=== PATIENT | female | born 1965 | race Caucasian/White ===

== ENCOUNTER 2017-08-31 09:49 | Observation (INO) | payer OTHER ==
[2017-08-31] VITALS (12 sets, daily range): BP systolic 98–114; BP diastolic 53–62
[~2017-08-31] VITALS: Ht 157.5 cm; Wt 81.6 kg
--- NOTE | ~2017-08-31 | H ---
[address] [address] HISTORY AND PHYSICAL Name: ABELARDO DAMICO Room: [address] Sasha Abreu#: [id number] Admission: 08/31/17 Attend Phys: Felix Ayala MD, Discharge: 09/01/17 Date of : 65 Report #: [id number] THIS REPORT FOR: //name// Please refer to the History and Physical performed in the physician's office. By: 1317Medical Records Staff GISEL /SHANNAN
[2017-08-31 10:33] LABS: HEMATOCRIT 34.4 % (37.0-47.0); HEMOGLOBIN 11.3 gm/dL (12.0-15.0); MCH 28.8 pg (26.0-34.0); MCHC 32.7 g/dL (28.0-37.0); MCV 87.9 fL (80.0-100.0); MPV 6.6 fl. (7.2-11.1); RBC 3.91 mil/uL (4.20-5.00); RDW-CV 13.4 % (10.5-14.5); WBC 6.8 thou/uL (4.0-11.0)
[2017-08-31] MEDS ORDERED: ARMOUR THYROID60 M1 PO (10:33)
[2017-08-31] MEDS ORDERED: SAVELLA100 MG PO (10:34)
[2017-08-31] MEDS ORDERED: PRAVACHOL40 M1 PO (10:35)
[2017-08-31] MEDS ORDERED: LOSARTAN POTASS25 MG PO (10:35)
[2017-08-31] MEDS ORDERED: CARVEDILOL6.25 MG PO (10:36)
[2017-08-31] MEDS ORDERED: TROKENDI XR200 MG PO (10:37)
[2017-08-31] MEDS ORDERED: AMITIZA8 MCG (10:38)
[2017-08-31] MEDS ORDERED: SINGULAIR 10 MG10 M1 PO (10:38)
[2017-08-31] MEDS ORDERED: EVEKEO (10:40)
[2017-08-31] MEDS ORDERED: BRINTELLIX10 MG PO (10:41)
[2017-08-31] MEDS ORDERED: ZOLPIDEM TARTRA10 MG PO (10:43)
[2017-08-31 10:44] LABS: APTT 25.7 Seconds (25.0-31.3); INR 1.1; PROTIME 10.6 Seconds (9.20-11.50)
[2017-08-31 10:46] LABS: ANION GAP 10 mmol/L (7-16); BUN 18 mg/dL (7-18); CHLORIDE 111 mmol/L (98-107); CO2 22 mmol/L (21-32); GLUCOSE 130 mg/dL (70-99); POTASSIUM 3.8 mmol/L (3.5-5.1); SODIUM 143 mmol/L (136-145)
[2017-08-31] MEDS ORDERED: TRAZODONE HCL100 MG PO (10:46)
[2017-08-31 10:47] LABS: ALBUMIN 3.6 g/dL (3.4-5.0); ALKALINE PHOSPHATASE 105 U/L (46-116); CHOLESTEROL 237 mg/dL (<200); HDL CHOLESTEROL 90 mg/dL (>40); LDL CHOLESTEROL 142 mg/dL (<100); SGOT 17 U/L (15-37); SGPT 20 U/L (30-65); TC:HDL 2.6 Ratio (Not establshd); TOTAL BILIRUBIN 0.2 mg/dL (<0.1-1.0); TRIGLYCERIDE 27 mg/dL (<150); VLDL 5 mg/dL (<40)
[2017-08-31] MEDS ORDERED: PIROXICAM20 MG PO (10:47)
[2017-08-31 10:48] LABS: SERUM ASSESSMENT Clear
[2017-08-31] MEDS ORDERED: ALL DAY ALLERGY10 M1 PO (10:48)
[2017-08-31] MEDS ORDERED: VITAMIN D3400 UNIT PO (10:49)
[2017-08-31] MEDS ORDERED: FLEXERIL PO (10:58)
[2017-08-31] MEDS ORDERED: PENTAZOCINE/NAL1 TA1 PO (11:01)
[2017-08-31] MEDS ORDERED: BENTYL 20 MG TA20 M1 (11:03)
[2017-08-31] MEDS ORDERED: MAXALT MLT ODT10 M1 PO (11:05)
[2017-08-31] MEDS ORDERED: ZOLMITRIPTAN5 MG PO (11:06)
[2017-08-31] MEDS ORDERED: VALIUM5 MG PO (11:07)
--- NOTE | 2017-08-31 15:51 | EKG ---
[place] [address] ELECTROCARDIOGRAM REPORT Name: CAMDEN DAMICOA Room: [address] ADM IN M.R.#: [id number] Admission: 08/31/17 Attend Phys: Felix Ayala MD, Discharge: Date of : 65 Report #: [id number] THIS REPORT FOR: //name// [facility] Test Date: 2017-08-31 Test Time: 10:31:06 Pat Name: ABELARDO DAMICO Department: Room: [facility] Gender: F Driver License Technician: YURY : 1965 Requested By: Felix Ayala Order Number: [id number] Janki MD: Felix Ayala Measurements Intervals [place] Rate: 87 P: 16 AL: 139 QRS: -11 QRSD: 87 T: 18 QT: 372 QTc: 448 Interpretive Statements Sinus rhythm Nonspecific T abnormalities, anterior leads No previous ECG available for comparison Electronically Signed On 08-31-2017 15:51:16 FIRE SUPPORT MAN by Felix Ayala [email or web address] <ELECTRONICALLY SIGNED> By: Felix Ayala MD, [facility] 08/31/17 1551 1031 1031 Felix Ayala MD, FACC /EPI
--- NOTE | 2017-08-31 15:56 | EKG ---
[place] [address] ELECTROCARDIOGRAM REPORT Name: DAMICOABELARDO Room: [address] ADM IN M.R.#: [id number] Admission: 08/31/17 Attend Phys: Felix Ayala MD, Discharge: Date of : 65 Report #: [id number] THIS REPORT FOR: //name// [facility] Test Date: 2017-08-31 Test Time: 15:24:48 Pat Name: ABELARDO DAMICO Department: Room: [facility] Gender: F Crystal Flat Grinder: CAITLIN : 1965 Requested By: Felix Ayala Order Number: [id number] Reading MD: Felix Ayala Measurements Intervals [place] Rate: 57 P: 19 ID: 127 QRS: 5 QRSD: 116 T: 59 QT: 462 QTc: 450 Interpretive Statements Sinus rhythm Nonspecific intraventricular conduction delay right precordial st-t changes Baseline wander in lead(s) V2 heart rate has decreased Electronically Signed On 08-31-2017 15:56:26 STAMP PAD MAKER by Felix Ayala [email or web address] <ELECTRONICALLY SIGNED> By: Felix Ayala MD, [facility] 08/31/17 1556 1524 1524 Felix Ayala MD, FAC /EPI
[2017-08-31] MEDS ORDERED: BENTYL 20 MG TA20 M1 PO (20:47)
[2017-08-31] MEDS ORDERED: AMITIZA8 MCG PO (20:48)
[2017-08-31] MEDS ORDERED: EVEKEO PO (20:48)
[2017-09-01 04:17] VITALS: BP 118/70
[2017-09-01 05:04] LABS: HEMOGLOBIN 9.8 gm/dL (12.0-15.0); MCH 28.8 pg (26.0-34.0); MCHC 32.6 g/dL (28.0-37.0); MCV 88.5 fL (80.0-100.0); MPV 6.9 fl. (7.2-11.1); RBC 3.39 mil/uL (4.20-5.00); RDW-CV 13.4 % (10.5-14.5); WBC 12.4 thou/uL (4.0-11.0)
[2017-09-01 05:43] LABS: ANION GAP 10 mmol/L (7-16); BUN 19 mg/dL (7-18); CALCIUM 8.5 mg/dL (8.5-10.1); CHLORIDE 114 mmol/L (98-107); CO2 21 mmol/L (21-32); CREATININE 0.9 mg/dL (0.6-1.3); GLUCOSE 100 mg/dL (70-99); POTASSIUM 4.2 mmol/L (3.5-5.1); SODIUM 145 mmol/L (136-145); TROPONIN-I LEVEL <0.06 ng/mL (<0.06)
--- NOTE | 2017-09-01 09:56 | CARD ---
[address] [address] CARDIAC CATH REPORT Name: ABELARDO DAMICO Room: [address] IN M.R.#: [id number] Admission: 08/31/17 Attend Phys: Felix Ayala MD, Discharge: Date of : 65 Report #: [id number] THIS REPORT FOR: //name// APPROVED REPORT Patient Details Patient Status: Out-Patient Room #: The patient is a 52 year-old female Event Personnel Dr. yAala Procedures Performed Left heart catheterization left ventriculography and selective coronary angiography, and percutaneous coronary intervention with deployment of drug-eluting stent at the site of 80% tubular proximal LAD stenosis Indication Positive stress test, Chest pain Risk Factors Family History, Hypercholesterolemia, Hypertension Admission/Lab Medications/Medications given during procedure Aspirin, Platelet Aff. Inhib., Angiomax bolus and infusion Procedure Narrative The patient was brought electively to the Cardiac Catheterization Laboratory and was prepped and draped in a sterile manner. The right femoral was infiltrated with 1% Lidocaine subcutaneous anesthesia. A 6 Welsh sheath was inserted into the right femoral artery. Coronary angiography was performed using coronary diagnostic catheters. The right coronary system was accessed and visualized with a Diagnostic catheter. The left coronary system was accessed and visualized with a Diagnostic catheter. The left ventricle was accessed and visualized with a Diagnostic catheter. Left ventricular/Aortic Valve gradient assessed via catheter pullback. Left ventriculogram was performed in HERNANDEZ projection. Pre-demployment femoral angiogram was performed . Closure device was deployed with a 6 Fr Angioseal. The patient tolerated the procedure well and there were no complications associated with the procedure. There was no hematoma. Diagnostic Cath Left Main 0% narrowing [facility] [address] [place] [address] CARDIAC CATH REPORT Name: ABELARDO DAMICO Room: [address] IN [facility]#: [id number] Admission: 08/31/17 Attend Phys: Felix Ayala MD, Discharge: Date of : 65 Report #: [id number] LAD 80% proximal LAD stenosis Circumflex 0% narrowing of this nondominant vessel Right Coronary Large dominant vessel with 0% narrowing Left Ventriculography Ejection Fraction was 65% based off patient's . The left ventricular ejection fraction is estimated to be 65%. There is no mitral insufficiency. Hemodynamics The aortic pressure is 110/60 mmHg with a mean of 74 mmHg. The left ventricular end diastolic pressure is 5 mmHg. There was no gradient across the aortic valve upon pullback. PCI Technique Lesion Anticoagulation was achieved with Angiomax. Percutaneous coronary intervention was performed on the proximal LAD. The lesion stenosis prior to intervention was 80% with FREDDY 3 flow. A 6 Welsh XB LAD 3.0 Guide Catheter was used to engage the ostium. A 014 [employer] Interventional Guidewire was used to cross the lesion. STENT DEPLOYMENT A drug-eluting stent 2.75 x 15 mm xience Alpine was inserted and inflated up to 14atm for 15seconds. POST STENT DEPLOYMENT BALLOON DILATION A Balloon catheter 2.75 x 12 mm NC euphora was inserted and inflated up to 18atm for 10seconds. Final angiography reveals 0 % stenosis with FREDDY 3 flow. Conclusion #1 significant single-vessel coronary artery disease characterized by the following: A 80% tubular proximal LAD stenosis #2 normal left ventricular size and systolic function, estimated ejection fraction being 65% #3 normal left-sided hemodynamics study #4 successful percutaneous coronary intervention with deployment of a drug-eluting stent at the site of 80% tubular proximal LAD stenosis with 0% residual narrowing following stent deployment and FREDDY-3 [place] [address] CARDIAC CATH REPORT Name: ABELARDO DAMICO Room: [address] IN [facility]#: [id number] Admission: 08/31/17 Attend Phys: Felix Ayala MD, Discharge: Date of : 65 Report #: [id number] to the distal vessel. Recommendations Cardiac Risk Reduction Program Aggressive Medical Therapy Medications Administered Aspirin (any) Prasugrel <ELECTRONICALLY SIGNED> By: Felix Ayala MD, [facility] 09/01/17 0956 0956 0956John Troy Ayala MD, FACC /INF
[2017-09-01 10:00] VITALS: BP 100/57
[2017-09-01] MEDS ORDERED: ASPIR 8181 MG PO (12:37)
[2017-09-01] MEDS ORDERED: ATORVASTATIN CA40 MG PO (12:38)
[2017-09-01] MEDS ORDERED: EFFIENT10 MG PO (12:39)
--- NOTE | 2017-09-01 14:45 | EKG ---
[place] [address] ELECTROCARDIOGRAM REPORT Name: DAMICOABELARDO Room: [address] M.R.#: [id number] Admission: 08/31/17 Attend Phys: Felix Ayala MD, Discharge: 09/01/17 Date of : 65 Report #: [id number] THIS REPORT FOR: //name// [facility] Test Date: 2017-09-01 Test Time: 03:20:55 Pat Name: ABELARDO DAMICO Department: Room: [facility] Gender: F Hunting Sales Associate: PITA : 1965 Requested By: Felix Ayala Order Number: [id number] Reading MD: Kel Bae Measurements Intervals [place] Rate: 85 P: 46 OK: 158 QRS: -9 QRSD: 93 T: 38 QT: 381 QTc: 453 Interpretive Statements Sinus rhythm Low voltage, precordial leads Borderline T abnormalities, anterior leads Compared to ECG 08/31/2017 15:24:48 Low QRS voltage now present T-wave abnormality now present Intraventricular conduction delay no longer present ST (T wave) deviation no longer present Electronically Signed On 09-01-2017 14:45:15 WHARF TALLY CLERK by Kel Bae [email or web address] <ELECTRONICALLY SIGNED> By: Kel Bae MD, FACC 09/01/17 1445 0320 0320 Kel Bae MD, FACC /EPI
--- NOTE | 2017-09-25 12:56 | D ---
[address] [address] DISCHARGE SUMMARY Name: ABELARDO DAMICO Room: [address] Sasha MNicanor#: [id number] Admission: 08/31/17 Attend Phys: Felix Ayala MD, Discharge: 09/01/17 Date of : 65 Report #: [id number] THIS REPORT FOR: //name// CC: AWILDA Ibarra MD [facility] DATE OF SERVICE: 09/01/2017 FINAL DISCHARGE DIAGNOSES: 1. Abnormal stress test with inducible anterolateral ischemia. 2. Coronary artery disease. 3. Status post percutaneous coronary intervention of the proximal left anterior descending. 4. Hypertension. 5. History of dilated cardiomyopathy. PROCEDURES: 08/31/2017 -- left heart catheterization, left ventriculography, selective coronary arteriography, percutaneous coronary intervention with deployment of drug-eluting stent at site of 80% tubular proximal LAD stenosis. The patient is a pleasant 52-year-old female with a history of chest pain, not always brought on by exertion. She had an abnormal stress test with inducible anterolateral ischemia. At cardiac catheterization, she was found to have a tubular 80% stenosis of proximal LAD. Despite infusion of significant amounts of intracoronary nitroglycerin, there was no change in this tubular narrowing with marked dilatation proximal and distal to the site. There were no significant stenosis of the left main, circumflex or dominant right coronary artery. Given her clinical picture, and given the abnormal stress test with significant proximal LAD narrowing, which was refractory to intracoronary nitroglycerin, deployed one drug-eluting stent in the proximal LAD, post-dilating it to 2.8-2.85 mm with 0% residual narrowing and FREDDY 3 flow of the distal vessel. The patient did well post-procedurally and there was good hemostasis at the right femoral site of catheterization. LABORATORY DATA: On 09/01/2017 revealed a hemoglobin of 9.8, white blood cell count of 12,400, platelets of 255,000. Sodium 145, potassium 4.2, BUN 19, creatinine 0.9, cholesterol 237, HDL 90, LDL 142, triglycerides 27. DISCHARGE MEDICATIONS: The patient was discharged to home on the following medications: Amphetamine 5 mg daily, aspirin 81 mg daily, atorvastatin 40 mg daily, carvedilol 6.25 mg b.i.d., cetirizine 10 mg daily, cholecalciferol 400 units daily, diazepam 5 mg b.i.d., losartan 25 mg daily, Amitiza 8 mcg b.i.d., Savella 100 mg b.i.d., Singulair 10 mg daily, piroxicam 20 mg at bedtime, [place] [address] DISCHARGE SUMMARY Name: ABELARDO DAMICO Room: [address] Sasha Abreu#: [id number] Admission: 08/31/17 Attend Phys: Felix Ayala MD, Discharge: 09/01/17 Date of : 65 Report #: [id number] prasugrel or Effient 10 mg daily with a 60 mg dose given periprocedurally, [place] Thyroid 60 mg daily, topiramate 200 mg daily, trazodone 100 mg at bedtime, Trintellix 15 mg at bedtime, zolpidem 10 mg at bedtime, cyclobenzaprine or Flexeril 10 mg as needed p.r.n., dicyclomine 20 mg p.r.n., pentazocine/naloxone 50 mg b.i.d. p.r.n., rizatriptan 10 mg t.i.d. p.r.n., zolmitriptan 5 mg b.i.d. p.r.n. DISCHARGE INSTRUCTIONS: The patient is scheduled to see our nurse practitioner, Catina Brush on 10/30/[address] Ibarra subsequently in approximately 6 weeks. The patient is discharged to home in stable condition on the aforementioned medications with followup as iterated above. <ELECTRONICALLY SIGNED> By: Felix Ayala MD, FACC 09/25/17 1256 0932 [id number] Ayala MD, FAC /nt
== END 2017-09-01 13:14 | disposition home or self-care (01) ==
LOC: M.CL 09:49 → M.TBA-CV 14:29 → M.2W 14:29
PROVIDERS: ADMIT Internal Medicine
DX: I21.09 ST elevation (STEMI) myocardial infarction involving other coronary artery of anterior wall (principal); I25.10 Atherosclerotic heart disease of native coronary artery without angina pectoris; I10 Essential (primary) hypertension; I42.0 Dilated cardiomyopathy

== ENCOUNTER 2017-09-04 17:16 | Observation (INO) | payer OTHER ==
[~2017-09-04] VITALS: Ht 157.5 cm; Wt 85.7 kg
[~2017-09-04 17:16] MED LIST: ALL DAY ALLERGY10 M1 PO; AMITIZA8 MCG; AMITIZA8 MCG PO; ARMOUR THYROID60 M1 PO; ASPIR 8181 MG PO; ATORVASTATIN CA40 MG PO; BENTYL 20 MG TA20 M1; BENTYL 20 MG TA20 M1 PO; BRINTELLIX10 MG PO; CARVEDILOL6.25 MG PO; EFFIENT10 MG PO; EVEKEO; EVEKEO PO; FLEXERIL PO; LOSARTAN POTASS25 MG PO; MAXALT MLT ODT10 M1 PO; PENTAZOCINE/NAL1 TA1 PO; PIROXICAM20 MG PO; PRAVACHOL40 M1 PO; SAVELLA100 MG PO; SINGULAIR 10 MG10 M1 PO; TRAZODONE HCL100 MG PO; TROKENDI XR200 MG PO; VALIUM5 MG PO; VITAMIN D3400 UNIT PO; ZOLMITRIPTAN5 MG PO; ZOLPIDEM TARTRA10 MG PO
[2017-09-04 17:26] VITALS: BP 113/61
[2017-09-04 17:44] LABS: ABSOLUTE BASOPHILS 0.1 thou/uL (0.0-0.2); ABSOLUTE EOSINOPHILS 0.2 thou/uL (0.0-0.7); ABSOLUTE LYMPHOCYTES 2.3 thou/uL (0.8-5.3); ABSOLUTE MONOCYTES 0.3 thou/uL (0.0-1.2); ABSOLUTE NEUTROPHILS 3.5 thou/uL (1.6-8.1); EOSINOPHILS 3.8 %; HEMATOCRIT 33.9 % (37.0-47.0); HEMOGLOBIN 10.7 gm/dL (12.0-15.0); LYMPHOCYTES 35.5 %; MCH 29.5 pg (26.0-34.0); MCHC 31.6 g/dL (28.0-37.0); MCV 93.4 fL (80.0-100.0); MONOCYTES 5.2 %; MPV 6.9 fl. (7.2-11.1); NUCLEATED RBCS 0 /100WBC; PLATELET COUNT* 259 thou/uL (150-400); POLYS 54.5 %; RBC 3.63 mil/uL (4.20-5.00); RDW-CV 14.3 % (10.5-14.5); WBC 6.4 thou/uL (4.0-11.0)
[2017-09-04 17:53] LABS: ANION GAP 9 mmol/L (7-16); BUN 22 mg/dL (7-18); CALCIUM 8.7 mg/dL (8.5-10.1); CHLORIDE 109 mmol/L (98-107); CO2 27 mmol/L (21-32); GLUCOSE 80 mg/dL (70-99); SODIUM 145 mmol/L (136-145)
[2017-09-04 17:56] LABS: INR 1.1; PROTIME 10.3 Seconds (9.20-11.50)
[2017-09-04 18:04] LABS: ALBUMIN 3.6 g/dL (3.4-5.0); ALKALINE PHOSPHATASE 118 U/L (46-116); LIPASE 160 U/L (73-393); NT-PRO BRAIN NAT PEPTIDE 34 pg/mL (<300); SGOT 16 U/L (15-37); SGPT 23 U/L (30-65); TOTAL BILIRUBIN 0.1 mg/dL (<0.1-1.0); TOTAL PROTEIN 6.8 g/dL (6.4-8.2); TROPONIN-I LEVEL <0.06 ng/mL (<0.06)
[2017-09-04 20:30] VITALS: BP 115/63
[2017-09-04 20:35] VITALS: BP 113/66
[2017-09-05 00:18] VITALS: BP 95/54
--- NOTE | 2017-09-05 02:00 | NUR ---
notified by kala ugarte that patient needs home dose of pentazosine-nalaxone. not available to administer from pharmacy. patient having pain. spoke with [facility] pharmacist. identified patient's pills over the phone. i also verified the pill with drug ID on [employer]. 1 pill administered by rn per dr. smith's order. patient's medication counted with patient and kala ugarte present (93) then 1 administered (92) in patient's pill bottle in pharmacy for pharmacy to label and identify today.
--- NOTE | 2017-09-05 03:14 | NUR ---
PT ADMIT TO ROOM 213. ALERT ORIENTED. ADMIT WITH BACK PAIN BETWEEN SHOULDERBLADES TIMES 2 DAYS. PT GIVEN HOME DOSE OF PAIN MEDICATIONS. PENTAZOCINE-NALOXONE. TELMETRY SHOWS SR. PT RESTING QUIETLY. NPO AT MN. TROPONINIS WNL. WILL CONTINUE TO MONITOR.
[2017-09-05 04:21] VITALS: BP 127/55
[2017-09-05 08:08] VITALS: BP 91/50
--- NOTE | 2017-09-05 10:16 | NUR ---
ASSUMED CARE OF PT THIS AM AROUND 0715- SOCIOLOGY RESEARCH ASSISTANT IN PLACE ORDERED, TRACING SR- UPON ASSESSMENT PT NOTED TO BE RESTING IN BED, EYES CLOSED- PT A&O X4-CONTINENT OF BOWEL AND BLADDER-SBA WITH TRANSFERS FOR SAFETY- LCTA, RESP EVEN AND UN-LABORED- VSS, O2 SAT 98% ON 2L VIA NC- ABDOMEN SOFT/ROUND/NON-TENDER, BS X 4 QUADS- LAST BM REPORTED 09/04/17- IV NOTED TO LEFT HAND INTACT, IVF INFUSING PRESCIBED- PT HUMPHREY NPO- CTA ORDERED WITH SOLU-MED X2 DOSES TO BE GIVEN PRIOR WITH BENADRYL AT TIME OF CTA R/T CONTRAST ALLERGY- 1ST DOSE GIVEN THIS AM PRESCIBED- NEW ORDERS NOTED FOR US ABD TO EVAL GB ABD BILIARY TREE- PT DENIES CHEST PAIN AT THIS TIME- CALL LIGHT AND PERSOANL BELONGINGS WITH IN REACH- HOURLY ROUNDS IN PLACE R/T SAFETY/NEEDS- ALL NEEDS MET AT THIS TIME-WCTM
--- NOTE | 2017-09-05 15:39 | NUR ---
CM ASSESSMENT: Pt is A&O. Resides at home with her . Independent with ADLs, continues to cook, clean and drive. Pt has a walker and wc that she can use if necessary, Pt stated that she needed the DME in 2010 after a bout of vertigo. Pt does not currently use DME. Hx of HH. No hx of SNF. Pt does not wear home o2. Pt has a neuro appt in September d/t a small pituitary gland. Goal is to dc home once medically stable.
[2017-09-05 16:00] VITALS: BP 116/76
--- NOTE | 2017-09-05 16:38 | EKG ---
[place] [address] ELECTROCARDIOGRAM REPORT Name: ABELARDO DAMICO Room: [address] ADM IN .R.#: [id number] Admission: 09/04/17 Attend Phys: Rosalinda Gupta Discharge: Date of : 65 Report #: [id number] THIS REPORT FOR: //name// [facility] ED Test Date: 2017-09-04 Test Time: 17:22:16 Pat Name: ABELARDO DAMICO Department: Room: [facility] Gender: F Ignition Expert: PERCY : 1965 Requested By: Isamar Simmons Order Number: [id number] MD: Bentley Barrios Measurements Intervals [place] Rate: 87 P: 20 AK: 135 QRS: 9 QRSD: 93 T: 41 QT: 375 QTc: 451 Interpretive Statements Sinus rhythm nonspecific t wave changes Abnormal R-wave progression, early transition Compared to ECG 09/01/2017 03:20:55 no change Electronically Signed On 09-05-2017 16:37:53 PRINT PRODUCER by Bentley Barrios [email or web address] <ELECTRONICALLY SIGNED> By: Bentley Barrios MD, [facility] 09/05/17 1637 1722 172 Bentley Barrios MD, [facility] /EPI
--- NOTE | 2017-09-05 16:49 | EKG ---
[place] [address] ELECTROCARDIOGRAM REPORT Name: CAMDEN DAMICOA Room: [address] ADM IN M.R.#: [id number] Admission: 09/04/17 Attend Phys: Rosalinda Gupta Discharge: Date of : 65 Report #: [id number] THIS REPORT FOR: //name// [facility] Test Date: 2017-09-05 Test Time: 08:59:34 Pat Name: ABELARDO DAMICO Department: Room: [address] Gender: F Database Coordinator: : 1965 Requested By: Agustin Mendoza Order Number: [id number] Reading MD: Bentley Barrios Measurements Intervals [place] Rate: 78 P: 14 W[place]: 137 QRS: 6 QRSD: 89 T: 53 QT: 386 QTc: 440 Interpretive Statements Sinus rhythm early transition Nonspecific T abnormalities, anterior leads Electronically Signed On 09-05-2017 16:49:29 INSTRUMENTATION FITTER by Bentley Barrios [email or web address] <ELECTRONICALLY SIGNED> By: Bentley Barrios MD, [facility] 09/05/17 1649 0859 0859 Bentley Barrios MD, FACC /EPI
--- NOTE | 2017-09-05 17:26 | NUR ---
PT ERYNENCITLALLI RESTING IN BED- CONSTRUCTION EQUIPMENT OPERATOR IN PLACE ORDERED, TRACING SR- IV TO LEFT HAND CONTINUED, IVF INFUSING ORDERED- NEW 18GAUGE IV PLACED PRE CTA INDICATED THIS SHIFT- SOLU-MED ALONG WITH BENADRYL GIVEN THIS SHIFT PRESCIBED PRIOR TO CONTRAST WITH CTA R/T ALLERGY REPORTED- CTA RESULTS SHOW NO EVIDENCE OF PE, BASILAR PULMONARY ATELECTASIS NOTED- US OF ABDOMEN COMPLETED THIS SHIFT ORDERED, RESULTS COMMUNICATED TO WITH NO NEW ORDERS RECIEVED- CARDIOLOGY CONSULT INTIATED INDICATED THIS SHIFT- DIET RESTARTED WITH OKAY CONFIRMED ER THIS SHIFT- PT DENIES ANY C/O PAIN/DISCOMORT AT THIS TIME- CALL LIGHT AND PERSONAL BELONGINGS WITH IN REACH-ALL NEEDS MET AT THIS TIME-WCTM
[2017-09-05 18:42] VITALS: BP 100/58; BP 109/56; BP 117/63
[2017-09-05 20:15] VITALS: BP 133/73
[2017-09-06] VITALS (7 sets, daily range): BP systolic 94–115; BP diastolic 55–80
--- NOTE | 2017-09-06 03:23 | NUR ---
ASSUMED CARE AT 2014, ASSESSMENT CHARTED. PATIENT ALERT/ORIENTED X4, SITTING UP IN BED WITH AT BEDSIDE. PATIENT TEARY AT TIMES WHEN TALKING ABOUT POSSIBILITY OF HER HAVING ALZHEIMER'S. UP AD LINDA IN ROOM. DENIES PAIN OR NEEDS. REFUSING SCD'S. MEDS PER MAR. CALL LIGHT WITHIN REACH, ENCOURAGED TO CALL FOR NEEDS.
--- NOTE | 2017-09-06 09:23 | NUR ---
ASSUMED CARE OF PT THIS AM AROUND 07- CREAM CHEESE MAKER IN PLACE ORDERED, TRACING SR- UPON ASSESSMENT PT NOTED TO BE RESTING IN BED, EYES OPEN- PT A&O X4- CONTINENT OF BOWEL AND BLADDER- UP AD-LINDA IN ROOM IN, STEADY GAIT NOTED- LCTA, RESP EVEN AND UN-LABORED- VSS, O2 SAT 97% ON 2L VIA NC- ABDOMEN SOFT/ROUND/NON-TENDER, BS X4 QUADS- LAST BM REPORTED 09/04/17- TRACE EDEMA NOTED TO BLE- IV NOTED TO LEFT FA AND SL, 2ND IV NOED TO LEFT HAND INTACT WITH IVF INFUSING PRESCRIBED- ECHO ORDERED FOR THIS AM- D/C PENDING RESULTS- PT DENIES ANY C/O PAIN/DISCOMFORT AT THIS TIME- CALL LIGHT AND PERSONAL BELONGINGS WITH IN REACH- HOURLY ROUNDS IN PLACE R/T SAFETY/NEEDS- ALL NEEDS MET AT THIS TIME-WCTM
--- NOTE | 2017-09-06 15:35 | 2DMMODE ---
[place] [address] 2 D/M-MODE ECHOCARDIOGRAM Name: ABELARDO DAMICO Room: [address] ADM IN [facility]#: [id number] Admission: 09/04/17 Attend Phys: Sean Streeter Discharge: Date of : 65 Date of Service: 09/06/17 1534 Report #: [id number] THIS REPORT FOR: //name// APPROVED REPORT Study performed: 09/06/2017 09:46:50 EXAM: Comprehensive 2D, Doppler, and color-flow Echocardiogram Patient Location: In-Patient Room #: [facility] Status: routine BSA: 1.87 HR: 85 bpm BP: 103/62 mmHg Rhythm: NSR Other Information Study Quality: Good Indications Chest Pain 2D Dimensions LVEF(%): 70.41 (>50%) IVSd: 10.18 (7-11mm) LVOT Diam: 21.28 (18-24mm) LVDd: 45.84 mm PWd: 9.09 (7-11mm) Ascending Ao: 29.43 (22-36mm) LVDs: 27.62 (25-40mm) Aortic Root: 32.49 mm Mcclain's LVEF: 70.41 % Volumes Left Atrial Volume (Systole) LA ESV Index: 23.30 mL/m2 Aortic Valve AoV Peak Chapin.: 1.39 m/s AO Peak Gr.: 7.77 mmHg LVOT Max P.69 mmHg AO Mean Gr.: 4.38 mmHg LVOT Mean P.85 mmHg LVOT Max V: 0.96 m/s AO V2 VTI: 26.83 cm LVOT Mean V: 0.62 m/s ROBY (VTI): 2.98 cm2 LVOT V1 VTI: 22.44 cm Mitral Valve E/A Ratio: 1.06 [place] [address] 2 D/M-MODE ECHOCARDIOGRAM Name: ABELARDO DAMICO Room: [address] IN .R.#: [id number] Admission: 09/04/17 Attend Phys: Sean Streeter Discharge: Date of : 65 Date of Service: 09/06/17 1534 Report #: [id number] MV Decel. Time: 201.68 ms MV E Max Chapin.: 0.92 m/s MV PHT: 58.49 ms MVA (PHT): 3.76 cm2 TDI E/Lateral E': 6.57 E/Medial E': 7.67 Medial E' Chapin.: 0.12 m/s Lateral E' Chapin.: 0.14 m/s Pulmonary Valve PV Peak Chapin.: 0.85 m/s PV Peak Gr.: 2.89 mmHg Tricuspid Valve TR Peak Gr.: 17.27 mmHg RVSP: 22.00 mmHg Left Ventricle The left ventricle is normal size. There is normal LV segmental wall motion. There is normal left ventricular wall thickness. Left ventricular systolic function is normal. The left ventricular ejection fraction is within the normal range. LVEF is 60-65%. The left ventricular diastolic function is normal. Right Ventricle The right ventricle is normal size. The right ventricular systolic function is normal. Atria The left atrium size is normal. The right atrium size is normal. Aortic Valve The aortic valve is normal in structure. No aortic regurgitation is present. There is no aortic valvular stenosis. Mitral Valve The mitral valve is normal in structure. Trace mitral regurgitation. No evidence of mitral valve stenosis. Tricuspid Valve The tricuspid valve is normal in structure. Trace tricuspid regurgitation. The RVSP is ___22____ mmHg. Pulmonic Valve The pulmonary valve is normal in structure. Trace [place] [address] 2 D/M-MODE ECHOCARDIOGRAM Name: ABELARDO DAMICO Room: [address] IN .R.#: [id number] Admission: 09/04/17 Attend Phys: Sean Streeter Discharge: Date of : 65 Date of Service: 09/06/17 1534 Report #: [id number] Great Vessels The aortic root is normal in size. IVC is normal in size and collapses with >50% inspiration Pericardium There is no pericardial effusion. <Conclusion> Left ventricular systolic function is normal. The left ventricular ejection fraction is within the normal range. <ELECTRONICALLY SIGNED> By: Bentley Barrios MD, FACC 09/06/17 1534 1534 1534 Bentley Barrios MD, FACC /INF
--- NOTE | 2017-09-06 18:50 | NUR ---
ORDERS RECIVED THIS SHIFT FOR OKAY FOR PT TO D/C IF OKAY PER CARDIOLOGY- ECHO COMPLETED AND NOTED WITH LVEF NOTED NORMAL AT 60-65%- RECIEVED PHONE CALL PER FOR OKAY TO D/C- IV TO LEFT FA AND LEFT HAND D/C ALONG WITH PANTRY WORKER PRIOR TO D/C- D/C TEACHING/EDUCATION GIVEN WITH ALL QUESTIONS AND CONCERNS ADDRESSED PRIOR TO D/C- BELONGINGS PACKED AND ACCOUNTED FOR PER PT- PT ESCORTED PER TECH WITH BELONGINGS TO VEHICLE WITH AT TIME OF D/C- PT NOTED TO HAVE LEFT UNIT AT 1845- NO PROBLEMS NOTED AT TIME OF D/C
--- NOTE | 2017-09-07 08:35 | NUR ---
PT ORDERS RECEIVED ON 09/06/17 AT 0853. PT WAS DISCHARGED ON 09/06/17 PRIOR TO COMPLETION OF PT EVALUATION.
--- NOTE | 2017-09-11 08:34 | CON ---
[address] [address] CONSULTATION Name: ABELARDO DAMICO Room: [address] Sasha Abreu#: [id number] Admission: 09/04/17 Attend Phys: Rosalinda Gupta Discharge: 09/06/17 Date of : 65 Report #: [id number] THIS REPORT FOR: //name// CC: Tennille Snell MD [facility] Sean Streeter DATE OF SERVICE: 09/05/2017 INDICATION: Chest pain. HISTORY OF PRESENT ILLNESS: The patient is a pleasant 52-year-old white female with a history of coronary artery disease status post percutaneous coronary intervention to her LAD last week. The patient presents with continued chest pain over the last several days. She states on Monday, she began to have some pain between her shoulder blades, radiating to her sternum. On Monday, the pain was worse and associated with some shortness of breath, diaphoresis, and nausea. She does state that it was somewhat worse with activity. Somewhat prolonged in nature. Her initial troponin here is less than 0.06. Subsequent troponin was less than 0.06. EKG shows sinus rhythm with nonspecific T-wave flattening, but no ST segment changes. At the time of my interview, she appears relatively comfortable. She has a history of nonischemic cardiomyopathy. By reports, her most recent noninvasive study showed her EF to be near the lower limits of normal. She is on a small dose of carvedilol and losartan. She also notes some dizziness that is positional in character consistent with orthostasis. PAST MEDICAL HISTORY: 1. Nonischemic cardiomyopathy. 2. Coronary artery disease, status post percutaneous coronary intervention to the proximal LAD last week. 3. Hyperlipidemia. 4. Remote history of hypertension. PAST SURGICAL HISTORY: 1. Appendectomy. 2. Cholecystectomy. 3. Hysterectomy. 4. Lap Band. 5. Tonsillectomy. FAMILY HISTORY: The patient's mother had heart attack at 58. The patient's brother had heart attack at 52. The patient's mother [place] [address] [address] CONSULTATION Name: ABELARDO DAMICO Room: [address] Sasha Abreu#: [id number] Admission: 09/04/17 Attend Phys: Rosalinda Gupta Discharge: 09/06/17 Date of : 65 Report #: [id number] patient's brother at 52. SOCIAL HISTORY: The patient is . She does not smoke now nor has she ever. She drinks alcohol rarely. ALLERGIES: CONTRAST, STERI-STRIPS, ESTROGEN, OXYCODONE, PROPOXYPHENE, ACETAMINOPHEN, SOAP, POVIDONE-IODINE, ADHESIVE TAPE, GABAPENTIN, DULOXETINE. CURRENT MEDICATIONS: Amphetamine sulfate 5 mg p.o. daily, aspirin 81 mg p.o. daily, atorvastatin 40 mg p.o. daily, carvedilol 6.25 mg p.o. b.i.d., cetirizine 10 mg p.o. daily, vitamin D3 400 units daily, Flexeril 10 mg at bedtime p.r.n., diazepam 5 mg b.i.d. p.r.n., losartan 25 mg daily, Amitiza 8 mcg p.o. b.i.d., Savella 100 mg p.o. b.i.d., Singulair 10 mg q. day, pentazocine/naloxone 50 mg b.i.d. p.r.n., piroxicam 20 mg at bedtime, Effient 10 mg daily, Maxalt-RECEIVING SPECIALIST 10 mg t.i.d. p.r.n., [place] Thyroid 60 mg daily, topiramate 200 mg daily, trazodone 100 mg at bedtime, Trintellix 10 mg 1-1/2 tablets at bedtime, zolmitriptan 5 mg b.i.d. p.r.n., Ambien 10 mg 1-1/2 tablets at bedtime. REVIEW OF SYSTEMS: A 14-point review of systems positive for generalized weakness, chest discomfort as outlined above, dyspnea on exertion, occasional orthopnea and PND, near syncope, edema, thyroid disease, anemia, seasonal allergies and medical allergies outlined above, depression and anxiety, arthritis and she wears glasses without acute visual loss. Otherwise, 14-point review of systems is unremarkable. PHYSICAL EXAMINATION: VITAL SIGNS: Blood pressure 116/76, pulse 90 and regular. GENERAL: This is a pleasant lady, in no distress. Mood and affect appropriate. HEENT: The patient is wearing glasses. Extraocular muscles intact. Mucous membranes are moist. NECK: Shows no jugular venous distention. There are no carotid bruits. CHEST: Reveals clear lung darnell without wheezes, rales or rhonchi. CARDIOVASCULAR: Reveals a regular rhythm with normal S1 and S2. I do not appreciate gallop or murmur. ABDOMEN: Reveals normal bowel sounds. The abdomen is soft, nontender. EXTREMITIES: Shows no edema. Peripheral pulses are 2+ and easily palpable. SKIN: Warm and dry. 12-lead EKG shows sinus rhythm with nonspecific T-wave flattening. No other significant changes are noted. Labs are reviewed. Troponin is less than 0.06 on 3 separate occasions. CTA of the chest shows no evidence of pulmonary embolus. Chest x-ray shows no acute cardiopulmonary abnormality. [address] [place] [place] [address] CONSULTATION Name: ABELARDO DAMICO Room: [address] Sasha Abreu#: [id number] Admission: 09/04/17 Attend Phys: Rosalinda Gupta Discharge: 09/06/17 Date of : 65 Report #: [id number] IMPRESSION AND RECOMMENDATIONS: 1. Chest pain. The patient has ruled out for myocardial infarction with serial enzymes. Doubt this represents acute coronary syndrome. I would be concerned of alternate cause such as gastrointestinal. Would recommend trying a GI cocktail. If this relieves her discomfort, might consider treatment with proton pump inhibitor. 2. Nonischemic cardiomyopathy. Repeat echocardiogram at this time. Continue losartan and carvedilol at current doses. 3. Coronary artery disease as outlined above. Continue Effient and aspirin for 1 year. Continue aspirin indefinitely. 4. Hyperlipidemia. Continue atorvastatin 40 mg daily. 5. Possible orthostasis. We will check orthostatic blood pressures and treat accordingly. <ELECTRONICALLY SIGNED> By: Kel Bae MD, [facility] 09/11/17 0834 1818 [id number] Eduin Bae MD, FACC /nt
== END 2017-09-06 18:45 | disposition home or self-care (01) ==
LOC: M.ERS 17:16 → M.2W 18:35 → M.TBA-ER 18:35 → M.2W 18:35
PROVIDERS: Personal Emergency Response Attendant; ADMIT Internal Medicine
DX: I25.119 Atherosclerotic heart disease of native coronary artery with unspecified angina pectoris (principal); E03.9 Hypothyroidism, unspecified; M79.7 Fibromyalgia; F41.9 Anxiety disorder, unspecified; K21.9 Gastro-esophageal reflux disease without esophagitis; E78.5 Hyperlipidemia, unspecified; R61 Generalized hyperhidrosis; E66.9 Obesity, unspecified; Z95.5 Presence of coronary angioplasty implant and graft; Z88.8 Allergy status to other drugs, medicaments and biological substances

== ENCOUNTER 2018-07-19 09:41 | Inpatient (IN) | payer OTHER ==
[~2018-07-19] VITALS: Ht 154.9 cm; Wt 86.2 kg
[2018-07-19] MEDS ORDERED: CRESTOR20 MG PO (09:52)
[2018-07-19] MEDS ORDERED: PLAVIX 75 MG TA75 M1 PO (09:52)
[2018-07-19 10:30] LABS: ABSOLUTE BASOPHILS 0.1 thou/uL (0.0-0.2); ABSOLUTE EOSINOPHILS 0.3 thou/uL (0.0-0.7); ABSOLUTE MONOCYTES 0.4 thou/uL (0.0-1.2); ABSOLUTE NEUTROPHILS 2.6 thou/uL (1.6-8.1); BASOPHILS 0.9 %; HEMATOCRIT 37.4 % (37.0-47.0); HEMOGLOBIN 12.2 gm/dL (12.0-15.0); LYMPHOCYTES 47.9 %; MCH 28.6 pg (26.0-34.0); MCHC 32.6 g/dL (28.0-37.0); MCV 87.7 fL (80.0-100.0); MONOCYTES 5.8 %; MPV 6.6 fl. (7.2-11.1); NUCLEATED RBCS 0 /100WBC; PLATELET COUNT* 294 thou/uL (150-400); POLYS 41.4 %; RBC 4.27 mil/uL (4.20-5.00); RDW-CV 13.4 % (10.5-14.5); WBC 6.3 thou/uL (4.0-11.0)
[2018-07-19 10:40] LABS: ANION GAP 8 mmol/L (7-16); BUN 15 mg/dL (7-18); CALCIUM 8.5 mg/dL (8.5-10.1); CHLORIDE 105 mmol/L (98-107); CO2 25 mmol/L (21-32); CREATININE 1.1 mg/dL (0.6-1.3); GLUCOSE 72 mg/dL (70-99); POTASSIUM 3.4 mmol/L (3.5-5.1); SODIUM 138 mmol/L (136-145)
[2018-07-19 10:45] LABS: PROTIME 10.7 Seconds (9.20-11.50)
[2018-07-19 10:49] LABS: ALBUMIN 3.6 g/dL (3.4-5.0); ALKALINE PHOSPHATASE 118 U/L (46-116); LIPASE 105 U/L (73-393); NT-PRO BRAIN NAT PEPTIDE 43 pg/mL (<300); SGOT 16 U/L (15-37); SGPT 21 U/L (30-65); TOTAL BILIRUBIN 0.2 mg/dL (<0.1-1.0); TOTAL PROTEIN 7.1 g/dL (6.4-8.2); TROPONIN-I LEVEL <0.06 ng/mL (<0.06)
--- NOTE | 2018-07-19 14:39 | EKG ---
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: Tate GRACIA : 1965 Requested By: Isamar Simmons Order Number: [id number] MD: Bentley Barrios Measurements Intervals [place] Rate: 66 P: 6 NM: 137 QRS: -9 QRSD: 95 T: 29 QT: 418 QTc: 438 Interpretive Statements Sinus rhythm Abnormal R-wave progression, early transition Nonspecific T abnormalities, anterior leads Compared to ECG 09/05/2017 08:59:34 No significant changes Electronically Signed On 07-19-2018 14:39:11 EXTRUDER OPERATOR by Bentley Barrios [email or web address] <ELECTRONICALLY SIGNED> By: Bentley Barrios MD, FACC 07/19/18 1439 0946 0946 Bentley Barrios MD, [facility] /EPI
[2018-07-19 16:46] VITALS: BP 88/44
[2018-07-19 17:00] VITALS: BP 105/76
[2018-07-19] MEDS ORDERED: OXCARBAZEPINE300 MG PO (17:17)
--- NOTE | 2018-07-19 18:06 | NUR ---
RECEIVED REPORT FROM RAISSA IN ED AND ASSUMED CARE OF PT @ 1700.PT IS A/O X4, VSS,TRACING SR ON THE MONITOR.ASSESSMENT CHARTED.PT ON 2L O2 NC PER CHEST PAIN PROTOCOL.IV PATENT WITH IVF INFUSING PER ORDERS.PT TO BE NPO AT MIDNIGHT FOR STRESS TEST IN AM.PT IS CALM AND COOPERATIVE WITH C/O PAIN IN CHEST.PT INFORMED OF PLAN OF CARE AND COMMUNICATES UNDERSTANDING.HOURLY ROUNDING COMPELTED FOR PT SAFETY.PT IS UP WITH SBA TO BATHROOM.PT LEFT RESTING IN BED WITH CALL LIGHT AND FALL PRECAUTIONS IN PLACE.WILL CONTINUE TO MONITOR.
[2018-07-19 19:40] VITALS: BP 97/52
[2018-07-20] VITALS: BP 88/54
[2018-07-20 04:00] VITALS: BP 112/60
[2018-07-20 04:41] LABS: HEMATOCRIT 33.6 % (37.0-47.0); HEMOGLOBIN 10.9 gm/dL (12.0-15.0); MCH 28.7 pg (26.0-34.0); MCHC 32.6 g/dL (28.0-37.0); MCV 88.3 fL (80.0-100.0); MPV 6.4 fl. (7.2-11.1); RBC 3.8 mil/uL (4.20-5.00); RDW-CV 13.4 % (10.5-14.5)
[2018-07-20 05:03] LABS: CALCIUM 8.1 mg/dL (8.5-10.1); CREATININE 0.9 mg/dL (0.6-1.3); MAGNESIUM 1.9 mg/dL (1.8-2.4); POTASSIUM 4.3 mmol/L (3.5-5.1)
--- NOTE | 2018-07-20 05:46 | NUR ---
VITALS WNL. SEE MAR. SEE CHARTING. FALL PRECAUTIONS IN PLACE. HOURLY ROUNDING FOR SAFETY.
[2018-07-20 08:30] VITALS: BP 104/50
--- NOTE | 2018-07-20 08:30 | NUR ---
ASSUMED PT. CARE AND RECEIVED REPORT AT 0730. PT A/OX4, VSS, MONITOR ON TRACING SR. PT. REPORTS STERNAL CP AT 4/10, MAINLY CONSTANT WITH SOME RELIEF AT REST. PT. ALSO REPORTS BEING LIGHTHEADED WHEN AMBULATING TO BATHROOM. FULL ASSESSMENT COMPLETED, REFER TO CHARTING. NPO FOR STRESS THIS MORNING, TO BE AROUND 0900. PT. AWARE OF PLAN OF CARE AND STATES UNDERSTANDING. CALL LIGHT IN REACH, WILL CONTINUE WITH PLAN OF CARE.
[2018-07-20 12:00] VITALS: BP 116/61
[2018-07-20 15:36] VITALS: BP 105/63
--- NOTE | 2018-07-20 15:51 | CARDNUC ---
[place] [address] CARDIAC NUCLEAR IMAGING REPORT Name: ABELARDO DAMICO Room: [address] IN [facility]#: [id number] Admission: 07/19/18 Attend Phys: Holden Sue, Discharge: Date of : 65 Date of Service: 07/20/18 1551 Report #: [id number] THIS REPORT FOR: //name// APPROVED REPORT Imaging Protocol: Rest Tc-99m/Stress Tc-99m 1 day Study performed: 07/19/2018 12:35:00 Indication: Chest pain, Dyspnea Patient Location: In-Patient Room #: 230 Stress Tech: Alma Delia Casillas Stress Nurse: Gail Beth RN NM Tech:LIZETTE Fernando Ht: 5 ft 1 in Wt: 182 lbs BSA: 1.81 m2 BMI: 34.38 Medical History Medical History: cad, pci,hyperlipidemia Medications: plavix, asa 81, carvedilol, crestor Allergies: contrast dye, estrogen, oxycodone, soap, povidine, tape, gabapentin, duloxetine Cardiac Risk Factors: hyperlipidemia, family hx Previous Cardiac Procedures: pci Exercise History: Sedentary Meds Held (24 hrs): carvedilol carvedilol only held 12/7 am Resting Data Rest SPECT myocardial perfusion imaging was performed in supine position 30 minutes following the intravenous injection of 11.0 mCi of Tc-99m Sestamibi. Time of rest injection: 904 Date: 07/20/2018 Time of rest imagin The images were gated to evaluate regional wall motion and calculate left ventricular ejection fraction. Administration Route: IV Administration Site: Left AC Pharmacologic Stress Pharmacologic stress test was performed by injecting Regadenoson 0.4 mg IV push over 10-15 seconds immediately followed by the intravenous injection of 33.5 mCi of Tc-99m Sestamibi. Time of stress injection: 1030 [place] [address] CARDIAC NUCLEAR IMAGING REPORT Name: DAMICO,ABELARDO F Room: [address]#: [id number] Admission: 07/19/18 Attend Phys: Holden Sue, Discharge: Date of : 65 Date of Service: 07/20/18 1551 Report #: [id number] Time of stress imagin Administration Route: IV Administration Site: Left AC Gated Stress SPECT was performed 40 minutes after stress injection. The images were gated to evaluate regional wall motion and calculate left ventricular ejection fraction. Prone imaging was performed. Stress Test Details Stress Test: Pharmacologic stress testing performed using 0.4 mg of regadenoson per 5 mL given IV over 10 seconds. Reason for pharmacologic stress test: physical limitation. HR Max Heart Rate (APMHR): 167 bpm Resting HR: 84 bpm Target HR (85% APMHR): 141 bpm Max HR Achieved: 118 bpm % of APMHR: 70 Recovery HR: 99 bpm BP Resting BP: 119/71 mmHg Max BP: 110/65 mmHg Recovery BP: 114/67 mmHg ECG Resting ECG: Sinus Rhythm, normal EKG Stress ECG: Sinus Tachycardia ST Change: None Arrhythmia: None Recovery ECG: Sinus Rhythm Recovery ST Change: None Recovery Arrhythmia: None Clinical Reason for Termination: Completed protocol Exercise duration: 0 min sec Exercise capacity: 1 METs The patient tolerated Lexiscan infusion without significant symptoms. Nurse Comments pt in very weakened condition. unable to walk on treadmill Stress ECG Conclusion You have abnormality. EKGs post Lexiscan stress show sinus rhythm and sinus tachycardia with no significant T [place] [address] CARDIAC NUCLEAR IMAGING REPORT Name: ABELARDO DAMICO Room: [address]#: [id number] Admission: 07/19/18 Attend Phys: Holden Sue, Discharge: Date of : 65 Date of Service: 07/20/18 1551 Report #: [id number] baseline. There were no stress-induced arrhythmias Study Quality Study: Good Artifact: No artifact Study Data At rest, the left ventricular ejection fraction was 59%.. Post stress, the left ventricular ejection was 66%.. TID = 0.87. Perfusion Normal left ventricular perfusion. Wall Motion Normal left ventricular wall motion. Nuclear Conclusion ECG Findings: negative for ischemia Clinical Findings: negative for ischemia Nuclear Findings: negative for ischemia Exercise Capacity: not assessed Left Ventricular Function: normal Risk Study: low Myocardial perfusion images show no defect to suggest infarct or ischemia. Left ventricular systolic function appears normal on gated studies. This is a low risk study. <Conclusion> You have abnormality. EKGs post Lexiscan stress show sinus rhythm and sinus tachycardia with no significant T wave changes when compared to baseline. There were no stress-induced arrhythmias <ELECTRONICALLY SIGNED> By: Kel Bae MD, FACC 07/20/18 1551 1551 1551 Kel Bae MD, FACC /INF
[2018-07-20 16:57] VITALS: BP 105/63
--- NOTE | 2018-07-20 18:37 | NUR ---
STRESS TEST NEGATIVE. DC ORDERS RECEIVED. IV AND MONITOR REMOVED. PT. GIVEN DC INSTRUCITONS, VERBALIZED UNDERSTANDING. PT. LEFT VIA WHEELCHAIR TO RETURN HOME IN PERSONAL VEHICLE, ALL BELONGINGS ACCOUNTED FOR.
== END 2018-07-20 18:05 | disposition home or self-care (01) | DRG 303 ==
LOC: M.ERS 09:41 → M.TBA-ER 12:13 → M.2W 12:13
PROVIDERS: Personal Emergency Response Attendant; ADMIT Internal Medicine
PROC: 5A09357 Assistance with Respiratory Ventilation, Less than 24 Consecutive Hours, Continuous Positive Airway Pressure (ICD-10-PCS; principal; 2018-07-19)
DX: I25.110 Atherosclerotic heart disease of native coronary artery with unstable angina pectoris (principal); M79.7 Fibromyalgia; I10 Essential (primary) hypertension; E78.5 Hyperlipidemia, unspecified; F41.1 Generalized anxiety disorder; G89.29 Other chronic pain; E66.9 Obesity, unspecified; J44.9 Chronic obstructive pulmonary disease, unspecified; E23.7 Disorder of pituitary gland, unspecified; Z95.5 Presence of coronary angioplasty implant and graft; Z90.49 Acquired absence of other specified parts of digestive tract; Z90.710 Acquired absence of both cervix and uterus; Z68.35 Body mass index [BMI] 35.0-35.9, adult; Z79.02 Long term (current) use of antithrombotics/antiplatelets; Z79.82 Long term (current) use of aspirin; Z79.899 Other long term (current) drug therapy; Z91.041 Radiographic dye allergy status; Z88.8 Allergy status to other drugs, medicaments and biological substances; Z91.048 Other nonmedicinal substance allergy status; Z82.49 Family history of ischemic heart disease and other diseases of the circulatory system